=== PATIENT | female | born 1985 | race African-American/Black ===

== ENCOUNTER 2017-09-21 21:50 | Emergency (ER) | payer MEDICAID, SELFPAY ==
--- NOTE | 2017-09-22 15:57 | CT ---
PRELIMINARY REPORT/[facility]/EMERGENTY AFTER-HOURS PROCEDURE CT Head Without Intravenous Contrast EXAM DATE/TIME: Exam ordered 09/22/2017 4:56 AM CLINICAL HISTORY: 32 years old, female; Pain; Headache; Patient HX: , F30 with HX of gestational HTN 2 years ago presen ts to ed C/O bilateral frontal migraine that began yesterday afternoon. Pt describes migraine as thro bbing. Pt reports bilateral blurred vision. Pt denies n/v, photophobia, fever, or chills. Pt took not michael for pain. Pt denies uma or trauma. Pt took BP today with OTTO still not resovled with BP coming ou t to 157/109. Pt does not take any medication for HTN since 2 years ago when pt was dx with gestational HTN. TECHNIQUE: Axial computed tomography images of the head/brain without intravenous contrast. COMPARISON: No relevant prior studies available. FINDINGS: Brain: Normal. No hemorrhage. No significant white matter disease. No edema. Ventricles: Normal. No ventriculomegaly. Bones/joints: Normal. No acute fracture. Soft tissues: Normal. Sinuses: Unremarkable as visualized. No acute sinusitis. Mastoid air cells: Unremarkable as visualized. No mastoid effusion. IMPRESSION: No acute intracranial hemorrhage. Thank you for allowing us to participate in the care of your patient. Dictated and Authenticated by: Jerry Venegas MD 09/22/2017 5:17 AM Central Time ([place] & [place]) HEAD CT WITHOUT CONTRAST: HISTORY: Migraine headache. COMPARISON: 10/11/2010 TECHNIQUE: A noncontrast head CT is performed from the skull base to the skull vertex. FINDINGS: This report is in agreement with the preliminary report by [facility]. No acute intracranial process. POS: [facility]
== END 2017-09-22 06:10 | disposition home or self-care (01) ==
LOC: ERS 21:50
DX: G43.909 Migraine, unspecified, not intractable, without status migrainosus (principal); F32.9 Major depressive disorder, single episode, unspecified; F17.210 Nicotine dependence, cigarettes, uncomplicated
CPT/HCPCS: 70450; 96361; 96374